=== PATIENT | male | born 1945 | race Caucasian/White ===

== ENCOUNTER 2016-11-24 13:12 | Emergency (ER) | payer OTHER ==
[~2016-11-24] VITALS: Ht 185.4 cm; Wt 89.4 kg
--- NOTE | 2016-11-24 13:27 | ED GI/GU/ABDOMINAL COMPLAINT ---
History of Present Illness General Chief Complaint: General Adult Stated Complaint: SIB MORGAN Source: patient, family, old records Exam Limitations: no limitations Vital Signs & Intake/Output Vital Signs & Intake/Output Vital Signs Date Time Temp Pulse Resp B/P B/P Pulse O2 O2 Flow FiO2 Mean Ox Delivery Rate 11/24 1721 70 16 101/59 95 Room Air 11/24 1649 69 20 87/64 97 11/24 1534 96.8 68 20 96/54 98 11/24 1325 97.3 64 22 86/52 96 Room Air Allergies Coded Allergies: NO KNOWN ALLERGIES (05/06/11) Reconcile Medications Cholecalciferol (Vitamin D3) (Vitamin D3) 2,000 UNIT TABLET 1 TAB PO DAILY VITAMIN SUPPORT (Reported) Ciprofloxacin HCl 500 MG TABLET 1 TAB PO BID ANTIBIOTIC, INFECTION (Reported) Glipizide (Glucotrol XL) 10 MG TAB.ER.24 2 TAB PO DAILY DIABETES (Reported) Lisinopril 2.5 MG TABLET 2 TAB PO DAILY HEART (Reported) Lisinopril 2.5 MG TABLET 1 TAB PO QPM HEART (Reported) Metformin HCl 500 MG TABLET 3 TAB PO DAILY DIABETES (Reported) Metformin HCl 500 MG TABLET 2 TAB PO QPM DIABETES (Reported) Nadolol 40 MG TABLET 1 TAB PO DAILY HEART (Reported) Simvastatin (Simvastatin*) 20 MG TABLET 1 TAB PO QPM CHOLESTEROL (Reported) Triage Note: Pt presents to ER with lower abdominal pain. Pt extremly jaundice on arrival. Pt states he had an ERCP and since than his jaundice has gotten worse and his BP has been low. Pt also states his lower abdominal pain has not subsided. Pt BP on arrival 86/52. PT TO ROOM 8 ON ARRIVAL, DR CASTANON AT BEDSIDE Triage Nurses Notes Reviewed? yes HPI: Patient had an ERCP with biliary stent placed on Monday. Since then he's been more jaundiced and anorexic. Since early this morning he began to complain of bilateral lower quadrant crampy abdominal pain. The pain is constant. There are no aggravating or mitigating factors. He rates the pain as 4 out of 10. There are no fevers or chills. There's anorexia but there is no nausea or vomiting. Patient states his urine is also very dark and he is having decreased urinary output. While the biliary stent was being placed it was bloody discharge coming through the stent. Past History Travel History Traveled to [place] past 21 day No Medical History Any Pertinent Medical History? 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 No Review of Systems Review of Systems Constitutional: Reports: no symptoms. EENTM: Reports: no symptoms. Respiratory: Reports: no symptoms. Cardiovascular: Reports: no symptoms. GI: Reports: see HPI, abdominal pain. Genitourinary: Reports: no symptoms. Musculoskeletal: Reports: no symptoms. Skin: Reports: jaundice. Neurological/Psychological: Reports: no symptoms. Hematologic/Endocrine: Reports: no symptoms. Immunologic/Allergic: Reports: no symptoms. All Other Systems: Reviewed and Negative Physical Exam Physical Exam General Appearance: well developed/nourished, alert, awake, anxious, severe distress Head: atraumatic Eyes: Bilateral: PERRL, EOMI, other (ICTERIC). Ears, Nose, Throat, Mouth: hearing grossly normal, DRY MUCOSA Neck: normal inspection, supple, full range of motion Respiratory: normal breath sounds, chest non-tender, no respiratory distress, lungs clear Cardiovascular: regular rate/rhythm, normal peripheral pulses Gastrointestinal: normal bowel sounds, soft, no organomegaly, tenderness Back: normal inspection, normal range of motion Extremities: normal range of motion Neurologic/Psych: no motor/sensory deficits, awake, alert, oriented x 3, normal mood/affect Skin: jaundice Core Measures ACS in differential dx? No Severe Sepsis Present: Yes BC x2: Yes Lactic Acid x2: Yes IV ABX Broad Spectrum: Yes NS/LR Started: Yes Septic Shock Present: Yes BC x2: Yes Lactic Acid: Yes IV ABX Broad Spectrum: Yes Focused Exam Completed: Yes NS/LR 30ml/kg w/in 3hrs: Yes IV Vasopressors started: No Progress Differential Diagnosis: biliary colic, bowel obstruction, colon cancer, cholecystitis, SBO Plan of Care: Orders Procedure Date/time Status George, Insertion/Removal/Asses 11/24 1733 Active CULTURE,URINE 11/[address] ABD & PELVIS W/O IV CONTRAS 11/24 1727 Active LACTIC ACID 11/24 1626 Complete Telemetry/Credit Associate 11/24 1326 Active URINALYSIS 11/24 1326 Complete PARTIAL THROMBOPLASTIN TIME 11/24 1326 Complete PROTHROMBIN TIME 11/24 1326 Complete AMMONIA 11/24 1326 Complete LACTIC ACID 11/24 1326 Complete COMPREHENSIVE METABOLIC PANEL 11/24 1326 Complete CBC WITHOUT DIFFERENTIAL 11/24 132 Complete EKG 11/24 132 Active Current Medications Sig/Pelon Start time Last Medication Dose Stop Time Status Admin Sodium Chloride 1,000 ML BOLUS ONE 11/24 1814 AC 11/24 (Normal Saline 0.9%) 11/24 1913 1823 Laboratory Tests 11/24/16 174: Urinalysis MOD H, Urine Color ORANG H, Urine Clarity CLEAR, Urine pH 6.0, Ur Specific [place] 1.020, Urine Protein TRACE H, Urine Ketones NEG, Urine Nitrite NEG, Urine Bilirubin POS@ICTO H, Urine Urobilinogen 0.2, Ur Leukocyte Esterase NEG, Ur Microscopic SEDIMENT EXAMINED, Ur Epithelial Cells FEW, Urine Bacteria FEW H, Urine Hemoglobin NEG, Urine Glucose NEG 11/24/16 1645: Lactic Acid 4.2 H 11/24/16 1450: Anion Gap 17 H, Estimated GFR 19 L, BUN/Creatinine Ratio 14.4, Glucose 86, Lactic Acid 5.1 H, Calcium 8.3 L, Total Bilirubin 32.7 H, AST 304 H, ALT 159 H, Alkaline Phosphatase 811 H, Ammonia < 9 L, Total Protein 6.0 L, Albumin 2.4 L, Globulin 3.6, Albumin/Globulin Ratio 0.7 L, PT 15.2 H, INR 1.45 H, APTT 33, CBC w Diff MAN DIFF ORDERED, RBC 3.46 L, MCV 101.6 H, MCH 36.9 H, RDW 15.8 H, MPV 12.6 H, Segmented Neutrophils 84 H, Band Neutrophils 6 H, Lymphocytes 3 L, Monocytes 7, Platelet Estimate VERIFIED BY SMEAR, Anisocytosis 1+, PUBS MCHC 36.3 Microbiology 11/24 1746 URINE ROUT: Urine Culture - RECD Diagnostic Imaging: Viewed by Me: CT Scan. Discussed w/RAD: CT Scan. Initial ED EKG: NSR, nonspecific ST T wave chg Prior EKG: unchanged Rhythm Strip: normal sinus rhythm Comments: Discussed with Dr. Espino who spoke with Dr. Shaw. At this point patient will be transferred to [place]. Departure Departure Disposition: OTHER [facility] (ACUTE) Condition: Guarded Clinical Impression Primary Impression: Acute renal failure Secondary Impressions: Liver failure Referrals: MANNY WELLINGTON,ELSA Brandt (PCP/Family) Departure Forms: Customer Survey General Discharge Information ED Sepsis Exam Date of Focused Sepsis Exam: 11/24/16 Time of Focused Sepsis Exam: 1825 Sepsis Cardiac Exam: Regular Rate/Rhythm Sepsis Resp Exam: CTA Sepsis Cap Refill Exam: <2 Sec Sepsis Peripheral Pulse Exam: Normal Sepsis Peripheral Pulse Location: Radial Sepsis Skin Color Exam: ICTERIC Skin Temp/Moisture Exam: Warm/Dry Critical Care Note Critical Care Note Critical Care Time: mins: (90 MIN)
[2016-11-24] MEDS ORDERED: CIPROFLOXACIN500 M2 PO (14:27)
[2016-11-24] MEDS ORDERED: LISINOPRIL2.5 M1 PO ×2 (14:28→14:29)
[2016-11-24] MEDS ORDERED: METFORMIN HCL500 M3 PO ×2 (14:29)
[2016-11-24] MEDS ORDERED: GLUCOTROL XL10 MG PO (14:30)
[2016-11-24] MEDS ORDERED: VITAMIN D32000 UNI1 PO (14:31)
[2016-11-24] MEDS ORDERED: SIMVASTATIN20 M2 PO (14:32)
[2016-11-24] MEDS ORDERED: NADOLOL40 M1 PO (14:32)
[2016-11-24 15:10] LABS: PT 15.2 SEC (9.4-12.5); PTT 33 SEC (25-37)
[2016-11-24 15:33] LABS: HEMATOCRIT 35.1 % (42-52); MEAN CORPUSCULAR HGB 36.9 PG (27.0-31.0); MEAN CORPUSCULAR HGB CONC 36.3 G/DL (33.0-37.0); MEAN CORPUSCULAR VOLUME 101.6 FL (80.0-94.0); MEAN PLATELET VOLUME 12.6 FL (7.4-10.4); PLATELET COUNT 148 /CUMM (130-400); RBC DISTRIBUTION WIDTH 15.8 % (11.5-14.5); WHITE BLOOD CELL COUNT 22.3 /CUMM (4.8-10.8)
[2016-11-24 15:37] LABS: RED BLOOD CELL CT 3.46 /CUMM (4.70-6.10)
[2016-11-24 18:44] VITALS: BP 94/52
--- NOTE | 2016-11-24 20:15 | CT SCAN REPORT ---
EXAMINATION: CT ABDOMEN AND PELVIS WITHOUT CONTRAST CLINICAL INFORMATION: Bilateral lower quadrant pain. COMPARISON: MRI 11/05/2016. TECHNIQUE: Multidetector volumetric imaging was performed from the superior aspect of the liver through the pubic symphysis. Sagittal and coronal reformatted images were obtained on the technologist's workstation. DLP: 656 mGy-cm FINDINGS: LUNG BASES: Subsegmental bibasilar atelectasis. No definite infiltrate. LIVER AND SPLEEN: The liver is somewhat shrunken centrally with intrahepatic biliary ductal dilatation consistent with an obstructing mass in the region of the proximal common duct. Plastic biliary stent appears in place, however appears somewhat low in position and may not be traversing the region of obstruction with persistent intrahepatic biliary ductal dilatation which appears to be increasing in the left lobe. Correlation with bilirubin values recommended. PANCREAS GALLBLADDER AND BILIARY TREE: Pancreas appears unremarkable. There is contrast filling the gallbladder likely related to the recent ERCP and biliary stasis. Gallbladder is not significantly distended. Extrahepatic biliary tree is nondilated. KIDNEYS, URETERS, AND ADRENALS: Unremarkable. URINARY BLADDER: Decompressed containing a George catheter. GI TRACT: There is new diffuse soft tissue stranding throughout the mesentery which is nonspecific. There are multiple mildly distended small bowel loops without evidence of a clear transition zone to suggest a small bowel obstruction. Findings are more suggestive of an ileus-type of pattern. The majority of the colon is collapsed limiting evaluation, however soft tissue stranding extends along the left colon predominately the descending colon raising the question of a developing colitis with mild circumferential wall thickening suspected throughout the left colon versus underdistention. Similar pattern is identified in the right colon, mid colon is air-filled without mural thickening. PERITONEAL CAVITY: There is no intraperitoneal free air. There is new intraperitoneal free fluid in the right upper quadrant. Trace amount of free fluid in the deep pelvis. RETROPERITONEUM: Extensive atherosclerotic aortic calcification, no evidence of adenopathy. PELVIC ORGANS: Urinary bladder is decompressed containing a George catheter. Prostate unremarkable. Trace amount of intraperitoneal free fluid. OSSEOUS STRUCTURES: No aggressive osseous lesions are seen. ANTERIOR ABDOMINAL WALL AND SOFT TISSUES: Intact. No significant hernia. IMPRESSION: 1. There is increasing biliary ductal dilatation with a biliary stent which appears somewhat low-lying and likely is nonfunctional. Correlation with serum bilirubin values is recommended. 2. Increasing nonspecific soft tissue stranding and intraperitoneal free fluid concerning for an inflammatory process. Findings suggest underlying colitis, and a developing ileus, clinical correlation recommended. Findings were discussed directly with the referring provider at 1945 hours on the day of the exam. Patient had been transferred to [facility] for further evaluation.
== END 2016-11-24 19:25 | disposition short-term general hospital (02) ==
LOC: ERH 13:12
PROVIDERS: Emergency Medicine
DX: N17.9 Acute kidney failure, unspecified (principal); K72.90 Hepatic failure, unspecified without coma
CPT/HCPCS: 74176; 81001; 87086; 93005; 93010; 96361; 96365; 99291